=== PATIENT | female | born 1970 | race Caucasian/White ===

== ENCOUNTER 2018-02-15 18:03 | Emergency (ER) | payer OTHER, SELFPAY ==
[2018-02-15 18:04] VITALS: BP 166/95; PULSE 60; RESP 18; TEMP 36.7; O2SAT 97; BMI 44.6
[2018-02-15 19:20] VITALS: BP 152/81; PULSE 82; RESP 20; O2SAT 96
--- NOTE | 2018-02-15 19:33 | US_ITS ---
STUDY: VENOUS DOPPLER ULTRASOUND - RIGHT LOWER EXTREMITY REASON FOR EXAM: Female, 47 years old. Swelling. Pain. TECHNIQUE: Ultrasound evaluation of the deep vein system to include gomez-scale imaging and compression was performed. Gomez-scale imaging and Doppler sonographic evaluation, including duplex spectral analysis and qualitative color flow sonography, was performed. COMPARISON: None. FINDINGS: Common Femoral Vein: Normal compression, spontaneity and augmentation. Normal color Doppler. Common Femoral Vein/Greater Saphenous Junction: Normal compression, spontaneity and augmentation. Normal color Doppler. Deep Femoral Vein: Normal compression, spontaneity and augmentation. Normal color Doppler. Femoral Proximal: Normal compression, spontaneity and augmentation. Normal color Doppler. Femoral Middle: Normal compression, spontaneity and augmentation. Normal color Doppler. Femoral Distal: Normal compression, spontaneity and augmentation. Normal color Doppler. Popliteal Vein: Normal compression, spontaneity and augmentation. Normal color Doppler. Posterior Tibial Vein: Normal compression, spontaneity and augmentation. Normal color Doppler. Peroneal Vein: Normal compression, spontaneity and augmentation. Normal color Doppler. There is a 5.4 x 3.7 x 1.7 cm Sanders cyst. US/Venous Duplex Imag/Limited/Uni IMPRESSION: Normal venous Doppler ultrasound of the right lower extremity. 5.4 x 3.7 x 1.7 cm Sanders cyst. Electronically Signed: Shane Walton, at 20:13 EDT Tel , Service support ,
--- NOTE | 2018-02-15 20:15 | ED.VISSUMM ---
- ER Visit Summary Date of Service: 02/15/18 Chief Complaint: Right knee pain History of Present Illness: The patient is a 47 F who recently had duplex scans of both legs performed in [place]. Patient states a DVT was found below the knee on the left leg and she was started on aspirin. A Sanders's cyst was found behind her right knee. Tonight she was walking at work and had sudden shooting pain in the anterior and lateral portions of her right knee. Patient does state that she had a repeat ultrasound of her left leg performed earlier today but she does not know the results. They did not reimage the right leg. Physical Examination: Vital signs significant for blood pressure 166/95, otherwise unremarkable. Head and neck examination unremarkable. Heart is regular rate and rhythm. Lung sounds are clear. Lower external examination reveals tenderness to palpation on the medial lateral joint lines of the right knee. She has mild posterior tenderness. She has good range of motion and strong distal pulses. Test Results: Venous ultrasound of the right leg reveals no evidence of DVT. Sanders's cyst is present and measuring 5.4 cm in diameter Emergency Department Course and Treatment: Test results were discussed with the patient. When she speaks with her doctor about her ultrasound results of her left leg she will verify size of Sanders cyst on the previous scan. She will follow with her orthopedic doctor. Treatment Plan: [] Disposition: Discharge Impression: Sanders's cyst right knee This note was generated with [employer] dictation software. It may contain incorrect words, spelling, and punctuation that were not noted in review of the chart prior to signing ED Disposition - Plan for ED Patient: Chief Complaint: Lower Extremity Injury Referrals: [facility] Doctor,Out of [Primary Care Provider] -
--- NOTE | 2018-02-15 20:17 | ED.DEP ---
ED Disposition - Plan for ED Patient: Disposition: Home or Assisted Living Chief Complaint: Lower Extremity Injury Instructions: ED Cyst Sanders Additional Instructions: Follow-up with your orthopediatric surgeon as discussed. The Sanders's cyst measures 5.4cm on tonight's scan.
[2018-02-15 20:27] VITALS: PULSE 69; RESP 22; O2SAT 98
== END 2018-02-15 20:33 | disposition home or self-care (01) ==
PROVIDERS: Emergency Provider Emergency Medicine
DX: M71.21 Synovial cyst of popliteal space [Baker], right knee (principal); K21.9 Gastro-esophageal reflux disease without esophagitis; E78.00 Pure hypercholesterolemia, unspecified; F31.9 Bipolar disorder, unspecified; Z79.899 Other long term (current) drug therapy
CPT/HCPCS: 93971; 99283

== ENCOUNTER → 2025-01-08 | Outpatient (CLI) | payer MEDICARE, SELFPAY ==
--- NOTE | 2025-01-08 07:17 | ECHOCS_ITS ---
Reason For Study Reason For Study: DYSPNEA Procedure This was a 2D Doppler, Color Flow transthoracic echocardiogram. The study was technically difficult. Contrast injection was performed. Exam performed in department. Left Ventricle Mild concentric left ventricular hypertrophy. Normal LV size. The LV systolic function is normal. EF is 65 %. Stage 1 diastolic dysfunction. Right Ventricle Normal right ventricle. Atria The left and right atria are normal. Mitral Valve Trivial mitral valve insufficiency. Tricuspid Valve No tricuspid valve insufficiency. Aortic Valve Trisinus/trileaflet aortic valve. Pulmonic Valve The pulmonic valve is not well visualized. Great Vessels Normal sized aortic root. Pericardium/Pleural No pericardial effusion. Medication 22 gauge I.V. with prn adaptor inserted into right arm. Diluted definity 2ml given slow IV push to enhance endocardial definition. MMode/2D Measurements & Calculations LVIDd: 5.1 cm IVSd: 1.2 cm LVOT diam: 2.1 cm LVIDs: 2.7 cm LVPWd: 1.0 cm RVDd: 3.7 cm FS: 46.9 % LVOT area: 3.6 cm2 asc Aorta Diam: 3.6 cm LAV(MOD-bp): 28.4 ml LVAd ap4: 35.7 cm2 LAV(MOD-bp) Indexed: 12.1 ml/m2 LVLd ap4: 8.2 cm LAV(MOD-sp2): 22.5 ml EDV(MOD-sp4): 128.5 ml LAV(MOD-sp4): 36.3 ml EDV(sp4-el): 132.0 ml LVAs ap4: 20.4 cm2 LVLs ap4: 6.7 cm ESV(MOD-sp4): 51.3 ml ESV(sp4-el): 52.5 ml EF(MOD-sp4): 60.1 % EF(sp4-el): 60.2 % LVAd ap2: 32.7 cm2 SV(MOD-sp4): 77.2 ml SV(MOD-sp2): 63.9 ml LVLd ap2: 8.0 cm SI(MOD-sp4): 32.9 ml/m2 SI(MOD-sp2): 27.3 ml/m2 EDV(MOD-sp2): 114.8 ml EDV(sp2-el): 113.5 ml LVAs ap2: 20.6 cm2 LVLs ap2: 6.7 cm ESV(MOD-sp2): 50.9 ml ESV(sp2-el): 53.5 ml EF(MOD-sp2): 55.6 % SV(sp4-el): 79.5 ml Ao sinus diam: 2.[address] Junction: 2.5 cm LA dimension(2D): 3.3 cm LA A4 area: 13.8 cm2 RA A4 area: 10.4 cm2 TAPSE: 2.0 cm Time Measurements MV dec time: 0.20 sec Doppler Measurements & Calculations MV E max koby: 88.2 cm/sec Lat Peak E' Koby: 10.0 cm/sec Med Peak E' Koby: 7.8 cm/sec MV A max koby: 109.1 cm/sec E/E' lat: 8.8 E/E' med: 11.3 MV E/A: 0.81 MV dec slope: 436.1 cm/sec2 Ao V2 max: 168.2 cm/sec LV V1 max: 129.8 cm/sec Ao max P.3 mmHg LV V1 max P.7 mmHg Ao V2 mean: 112.8 cm/sec LV V1 mean P.1 mmHg Ao mean P.8 mmHg LV V1 mean: 95.6 cm/sec Ao V2 VTI: 35.4 cm LV V1 VTI: 28.1 cm AV (velocity ratio): 0.79 JAYNE(I,D): 2.9 cm2 JAYNE(V,D): 2.8 cm2 SV(LVOT): 102.0 ml PA V2 max: 106.6 cm/sec ECHO/Echo Complete W/ Contrast Interpretation Summary Mild concentric left ventricular hypertrophy. The LV systolic function is normal. EF is 65 %. Stage 1 diastolic dysfunction. Ordering Physician: Shayy Camargo Referring Physician: Shayy Camargo MD Performed By: Aby Cavanaugh RDCS
--- NOTE | 2025-01-09 12:31 | STRESSREP_ITS ---
Stress Test Report Date: 01/08/2025 Procedure: Pharmacologic stress nuclear imaging study Indications: Dyspnea on exertion Consent: Per the patient Procedure: The patient underwent pharmacologic (Regadenoson 0.4mg ) evaluation with a peak heart rate of 109 beats per minute (65%predicted maximal heart rate) and a peak blood pressure of 146/98 mmHg. The baseline ECG demonstrated nonspecific ST changes. The peak pharmacologic ECG failed to show any diagnostic ischemic changes. There were no cardiac dysrhythmias pretest, during pharmacologic infusion, or recovery. There was no complaint of chest discomfort during pharmacologic infusion or recovery. The patient was injected with 15.0 millicuries of technetium 99m Cardiolite and subsequently rest SPECT Cardiolite nuclear imaging was obtained in the horizontal long, vertical long, and short axis views. The patient underwent pharmacologic (Regadenoson) evaluation. The patient was injected with 44.9 millicuries of technetium 99m Cardiolite and subsequently stress SPECT Cardiolite nuclear imaging was obtained in the horizontal long, vertical long, and short axis views. A gated Cardiolite study at peak stress was obtained. The examination was stopped secondary to completion of protocol. Rest and stress SPECT Cardiolite nuclear imaging status post realignment, normalization, and attenuation correction demonstrate decreased perfusion of the anterior wall which actually appears better on poststress images. Likely attenuation artifact. There is end systolic thickening and brightening. The gated Cardiolite study demonstrates myocardial thickening and inward wall motion. The reported LVEF is 71%. Impression: 1. Pharmacologic (Regadenoson) evaluation 2. Peak pharmacologic ECG with no diagnostic ischemic changes. 3. There were no cardiac dysrhythmias pretest, during pharmacologic infusion, or recovery. 5. Mildly reduced perfusion of the anterior wall on both stress and resting images with normal wall motion likely represents attenuation artifact. No reversible ischemia. 6. The gated Cardiolite study reports an LVEF of 71%. This note was generated with [employer] software. It may contain incorrect words, spelling, and punctuation that were not noted in checking the note before signing.
== END | disposition home or self-care (01) ==
PROVIDERS: PCP Internal Medicine; Referring Provider Internal Medicine Cardiovascular Disease; Visit Provider Internal Medicine Cardiovascular Disease
DX: R06.02 Shortness of breath (principal)
CPT/HCPCS: 78452; 93017; 93306; A9500; Q9957; A4216; C8929; J2785